=== PATIENT | male | born 1975 | race Caucasian/White ===

== ENCOUNTER 2023-09-24 06:22 | Emergency (ER) | payer OTHER, SELFPAY ==
[2023-09-24 06:23] VITALS: BP 158/100; PULSE 98; RESP 16; TEMP 36.7; O2SAT 98; BMI 25.8
--- NOTE | 2023-09-24 06:46 | EDS_ITS ---
HPI HPI - Psych History of Present Illness Chief Complaint: Mental Health Informant: patient Narrative Narrative: For the past 3 to 4 days, since he did a speedball, patient has been feeling extreme highs and lows, thoughts of suicide, and paranoia. He states yesterday he was afraid he would kill himself with a gun, which he owns, and admits that he is feeling very impulsive and does not want to feel this way and does not want to harm himself, just does not want to feel this way anymore since doing the drugs. He is insightful that all of this is likely a result of doing drugs few days ago. He has not done any since. He has not use any IV drugs. No recent illness. He is on psychiatric medications and states he has been compliant with them. He is asking for help and also for something to help him calm down. He states he is having thoughts of fighting people but not homicidal thoughts, and then states that he does not want to hurt anybody. [facility] Medical History (Updated 09/24/23 @ 07:[address] Paul Young MD) Bipolar 1 disorder Schizophrenia Depression Anxiety Home Medications ?Medication ?Instructions ?Recorded ?Last Taken ?Type NK 09/24/23 Unknown History Allergy/AdvReac Type Severity Reaction Status Date / Time bee venom protein (honey Allergy Severe Anaphylaxis Verified 09/24/23 06:27 bee) (bee stings) Surgical History History of hernia surgery Social History Smoking Status: Never smoker ROS ROS ED Constitutional Constitutional ED: Denies chills or fever(s) Eyes Eyes: Denies change in vision or diplopia ENT ENT ED: Denies rhinorrhea or sore throat Cardiovascular Cardiovascular: Denies chest pain or palpitations Respiratory/Chest Respiratory/Chest: Denies cough or dyspnea Gastrointestinal Gastrointestinal: Denies abdominal pain, diarrhea, nausea or vomiting Genitourinary Genitourinary ED: Denies dysuria or hematuria Musculoskeletal Musculoskeletal: Denies back pain or neck pain Integumentary Denies abscess or rash Neurologic Neurologic: Denies headache(s), paresthesias or weakness Psychiatric Psychiatric: Reports as per HPI, anxiety, depression, paranoia and suicidal thoughts; Denies homicidal ideation or suicidal ideation EXAM Physical Exam Const Vital Signs: 09/24/23 06:23 Temperature 98.1 F Temperature Source Oral Pulse Rate 98 Respiratory Rate 16 Blood Pressure 158/100 H Blood Pressure Mean 119 Pulse Ox 98 Oxygen Delivery Method Room Air Positive well nourished and well developed General Appearance ED: well developed and NAD HEENT Reports moist mucous membranes normocephalic and atraumatic Eyes PERRL and EOMs intact bilaterally General Eye ED: Negative for scleral icterus Neck no lymphadenopathy and supple Resp normal respiratory effort and clear to auscultation bilaterally Cardio no murmurs Rate: regular rate Rhythm: regular rhythm GI non-tender and non-distended Auscultation: normoactive bowel sounds Palpation: soft Back/Spine no CVA tenderness and normal ROM Extremity normal to inspection General Extremety ED: Negative for edema General Extremity: Negative for edema Neuro oriented x3, CN's II-XII intact bilaterally, no sensory deficits noted and gait normal Sensorium / Orientation: alert Motor Exam: strength 5/5 throughout Psych thought process normal, cooperative and denies homicidal ideation Psych Narrative: I am feeling crazy and impulsive Mood & Affect: anxious and other Agitated, hyperactive, yet cooperative Thought Process: racing thoughts Thought Content: suicidality Skin Lesions: no lesions Rashes: no rashes MDM MDM MDM Narrative Medical decision making narrative: Patient was given a dose of Ativan after he gave us a urine sample. He then told the nurse that he refused to allow us to draw his blood until we gave him more drugs to help him calm down. I advised him that we will not be happening, but if he allows us to get the studies that crisis requires in order to medically clear him, we will then consider giving him more medications to help him feel better. He refused and threatened to elope. I spoke with him, he is willing to cooperate, he would prefer a pill rather than more shots which will be given/ordered. He denies having any alcohol and does not seem to be intoxicated, anticipating labs for medical clearance and crisis to evaluate. Lab Data Attestation: I reviewed the patient's lab results. Labs: Laboratory Results - last 24 hr 09/24/23 06:54 Urine Opiates Screen NEGATIVE Urine Methadone Screen NEGATIVE Ur Barbiturates Screen NEGATIVE Ur Phencyclidine Scrn NEGATIVE Ur Amphetamines Screen POSITIVE H MDMA (Ecstasy) Screen NEGATIVE U Benzodiazepines Scrn NEGATIVE Urine Cocaine Screen NEGATIVE U Cannabinoids Screen POSITIVE H Ur Drug Screen Comment Discharge Plan Triage Chief Complaint: Mental Health ED Provider: Paul Young Dx/Rx/DC Orders Clinical Impression: Suicidal thoughts, Methamphetamine abuse Prescriptions: No Action NK Primary Care Provider: CAROLE MOORE Referrals: [facility] Doctor,Out of [Non-Staff] - Print Language: Polish
[2023-09-24] MEDS: LORazepam 2 MG/ML Syringe 1 MG IM (06:59)
[2023-09-24 07:30] LABS: Amphetamine Urine VISTA POSITIVE (<1000 ng/mL); Barbiturate Urine VISTA NEGATIVE (< 200 ng/mL); Benzodiazepine Urine VISTA NEGATIVE (< 200 ng/mL); Cocaine Urine VISTA NEGATIVE (< 300 ng/mL); Ecstacy Urine VISTA NEGATIVE (< 500 ng/mL); Methadone Urine VISTA NEGATIVE (< 300 ng/mL); PCP Urine VISTA NEGATIVE (< 25 ng/mL); THC Urine VISTA POSITIVE (< 50 ng/mL); Vista UDS pH Range 6
--- NOTE | 2023-09-24 07:48 | ED.RN ---
pt asking for another shot as ativan not helping pt still refusing blood draws and despite being offered something after labs drawn. stated, i cant give you blood in this condition! i cant stop moving around lights dimmed and pt aware that would not be getting anything further at this point. stated, well i guess were at a stale mate then
[2023-09-24] MEDS: hydrOXYzine PAM 25 MG Capsule 75 MG PO (08:11)
[2023-09-24] MEDS: LORazepam 1 MG Tablet 2 MG PO (08:11)
[2023-09-24 08:17] LABS: Absolute Lymphocyte Count 2.25 X10^3/uL (0.83-4.51); Absolute Neutrophil Count 5.5 X10^3/uL (2.0-7.7); Basophil# 0.02 X10^3/uL; Basophil% 0.2 % (0-1); Eosinophil# 0.01 X10^3/uL; Eosinophils% 0.1 % (0-5); Hematocrit 44.4 % (40-54); Hemoglobin 14.9 g/dL (13.0-16.5); Lymphocyte # 2.25 X10^3/ul (0.83-4.51); Lymphocyte % 27.4 % (19-41); Mean Corp Hgb Conc 33.6 g/dL (32-36); Mean Corpuscular Hgb 30.7 pg (27.0-32.0); Mean Corpuscular Volume 91.4 fL (80-94); Mean Platelet Vol. 9.6 fl (6.2-12.0); Monocyte# 0.39 X10^3/uL; Monocyte% 4.8 % (0-10); NRBC Flagged by Analyzer 0 % (0-5); Neutrophil # 5.52 X10^3/uL (2.7-7.7); Neutrophil % 67.3 % (47-70); Platelet Count 249 K/mm3 (150-450); RBC Distribution Width CV 12.6 % (11.6-14.6); RBC Distribution Width SD 42.3 fl (35.1-43.9); Red Blood Count 4.86 M/mm3 (4.6-6.2); White Blood Count 8.2 K/mm3 (4.4-11.0)
[2023-09-24 08:22] VITALS: BP 122/81; PULSE 74; RESP 16; O2SAT 97
[2023-09-24 08:27] LABS: Alcohol, Blood (Medical)-Serum < 3.0 mg/dL
[2023-09-24 08:31] LABS: ALB/GLOB Ratio 1.1 RATIO (0.9-2.4); AST(SGOT) 17 U/L (15-37); Alanine Aminotransfer ALT/SGPT 25 U/L (16-61); Albumin, Serum 4.2 g/dL (3.2-5.0); Alkaline Phosphatase 59 U/L (45-117); Anion Gap 4 (5-15); BUN 10 mg/dL (7-18); BUN/Creat Ratio 10.9 RATIO (10-20); Calcium,Total 9.7 mg/dL (8.5-10.1); Chloride 104 mmol/L (98-107); Creatinine, Serum 0.92 mg/dL (0.70-1.30); EST Glomerular Filtration Rate 93 mL/min (>60); Est Glom Filt Rate - Afr Amer 112 mL/min (>60); Estimated Creatinine Clearance 97.13 ml/min; Globulin 3.8 g/dL (2.2-4.2); Glucose 109 mg/dL (74-106); Potassium 4.3 mmol/L (3.5-5.1); Sodium Level 137 mmol/L (136-145)
--- NOTE | 2023-09-24 09:00 | ED.RN ---
PT MEDICALLY CLEAR, CRISIS CALLED, CHART FAXED.
--- NOTE | 2023-09-24 09:16 | ED.RN ---
ROSLYN HERE WITH [facility]ISIS TO EVALUATE
[2023-09-24 12:52] VITALS: BP 118/64; PULSE 70; RESP 12; O2SAT 99
--- NOTE | 2023-09-24 13:38 | ED.RN ---
REFERRED TO [facility], WAITING TO HEAR BACK FROM [place] TO VERIFY HE DOES NOT HAVE [facility].
--- NOTE | 2023-09-24 16:36 | ED.RN ---
Nurse to nurse given to Jordana at [facility]. She stated that she will reach out to her provider and then counselor. Awaiting a call back.
[2023-09-24] MEDS: Ziprasidone IM 20 MG/ML VIAL IM (18:40)
--- NOTE | 2023-09-24 19:22 | ED.RN ---
Called [facility] and spoke with Jordana, she states the patient's transport needs to be cancelled and that they will have to be observed for 4 hours. Jordana states they [facility] will call back around 10:30pm and if they deem the patient to still be appropriate for their facility they will accept and we can set up transportation again.
[2023-09-24 21:00] VITALS: PULSE 83; RESP 18; O2SAT 100
--- NOTE | 2023-09-24 21:22 | ED.RN ---
Vitals obtained late, pt had become aggressive and received medication to help with agitation. Staff allowing pt to rest instead of causing repeat agitation by attempting to obtain vital signs. Blood pressure not obtained as pt became restless when attempting to place cuff. Pt resting in bed,no signs of distress if not attempting to interact with him. Sitter at bedside.
[2023-09-24 23:10] VITALS: BP 103/76; PULSE 120; TEMP 36.2; O2SAT 98
--- NOTE | 2023-09-24 23:18 | ED.RN ---
No phone call was received from [facility], this RN calls to speak with the nurse to see if they patient is still accepted and if transport can be set up. This RN has attempted to call multiple times, either get sent to voicemail or on hold for 5+minutes. I have been unable to speak with anyone about this patient at this time. Will continue to try.
--- NOTE | 2023-09-25 01:49 | ED.RN ---
Crisis was contacted around 0010 notifying them they we can not get a hold of [facility] to see if we can send patient. Crisis calls back at this time stating they have tried multiple times to get a hold of any one at [place] and even called a [facility] to ask for an alternative number and has been unsuccessful. Will continue to try.
[2023-09-25 03:00] VITALS: BP 125/66; PULSE 88; RESP 16; TEMP 36.9; O2SAT 97
[2023-09-25] MEDS: Mirtazapine 30 MG Tablet 45 MG PO (03:08)
[2023-09-25] MEDS: Divalproex (ER) 500 MG Tablet 1000 MG PO (03:09)
[2023-09-25] MEDS: hydrOXYzine PAM 25 MG Capsule 75 MG PO (03:24)
--- NOTE | 2023-09-25 06:40 | ED.RN ---
This RN was finally able to speak with staff at [facility]. Spoke with Margo who states it looks like he is fine to come because our drywall application supervisor wrote his name down on our board Margo states they do not need a new nurse to nurse report. We will set up transportation for patient with physicians.
[2023-09-25 07:12] VITALS: BP 119/79; PULSE 76; RESP 18; TEMP 36.3
[2023-09-25 10:18] VITALS: BP 134/75; PULSE 64; RESP 16; TEMP 36.2; O2SAT 98
== END 2023-09-25 08:30 ==
PROVIDERS: Emergency Provider Emergency Medicine; Visit Provider Emergency Medicine
DX: R45.851 Suicidal ideations (principal); F15.10 Other stimulant abuse, uncomplicated
CPT/HCPCS: 80053; 80307; 80320; 85025; 87635; 96372; 99284; A4216; G0480; J3486